=== PATIENT | female | born 1945 | race Caucasian/White ===

== ENCOUNTER 2019-12-09 13:44 | Outpatient (CLI) | payer MEDICARE, SELFPAY ==
--- NOTE | ~2019-12-09 | CT_ITS ---
EXAMINATION:CT lung screening DATE: 12/09/2019 14:50 INDICATION: Personal history of tobacco dependence. Current smoker with 30 pack year history. TECHNIQUE: Computed tomography (CT) of the chest was performed without intravenous contrast. Automate d exposure control and iterative reconstruction technique were employed. The dose-length product (DLP ) was 64.39 mGy-cm. COMPARISON: None. FINDINGS: There is mild atelectasis bilaterally. There is mild emphysema. No pleural effusion. There are macrocalcifications in the thyroid. There is an aberrant right subclavian artery. The heart size is normal. There are coronary artery calcifications. No pericardial effusion. There is thoracic kypho sis and severe spondylosis. IMPRESSION: 1. Lung-RADS category 1: Negative. Continue annual screening with noncontrast low-dose chest CT in 12 months. Reviewed, dictated and finalized at location A. IMPRESSION: 1. Lung-RADS category 1: Negative. Continue annual screening with noncontrast l ow-dose chest CT in 12 months.
--- NOTE | ~2019-12-09 | XR_ITS ---
XR lumbar spine 2-3V DATE: 12/09/2019 14:28 INDICATION: Acute low back pain, sciatica TECHNIQUE: AP, lateral , coned lateral lumbosacral views COMPARISON: None FINDINGS: There is diffuse osteopenia. There is mild levoscoliosis of the lumbar spine. There is degenerative spurring of the lower thoracic spine. No fracture or bone destruction. The lumbar pedicles are intact. Lumbar and lumbosacral interspaces are relatively well preserved. The sacroiliac joints are intact. There is extensive calcification of the abdominal aorta and iliac arteries. IMPRESSION: Osteopenia Degenerative change primarily at lower thoracic spine Reviewed, dictated and finalized at location A.
--- NOTE | ~2019-12-09 | XR_ITS ---
XR thoracic spine 3V DATE: 12/09/2019 14:28 INDICATION: Acute back pain. No injury. TECHNIQUE: AP, lateral, swimmer views COMPARISON: None FINDINGS: There is thoracic kyphosis. There is diffuse osteopenia. There is mild anterolisthesis at C2-3 and C3-4. There is prominent degenerative disc disease in the l ower cervical spine in particular. Thoracic spine fracture or bone destruction is noted. There is degenerative spurring. No paraspinal s oft tissue thickening is detected. IMPRESSION: Thoracic kyphosis Diffuse osteopenia Degenerative spurring Reviewed, dictated and finalized at location A.
== END 2019-12-09 13:45 | disposition home or self-care (01) ==
PROVIDERS: PCP Physician Assistant; Visit Provider Physician Assistant
DX: Z12.2 Encounter for screening for malignant neoplasm of respiratory organs (principal); Z87.891 Personal history of nicotine dependence; M54.5 Low back pain; M85.88 Other specified disorders of bone density and structure, other site
CPT/HCPCS: 72072; 72100; G0297

== ENCOUNTER 2020-04-24 12:59 | Outpatient (CLI) | payer MEDICARE, SELFPAY ==
[2020-04-24 15:07] LABS: Alanine Aminotransferase 10 U/L (4-35); Albumin Level 3.9 g/dL (3.5-5.1); Alkaline Phosphatase 103 U/L (38-126); Aspartate Amino Transferase 21 U/L (14-36); Bilirubin,Total 0.4 mg/dL (0.2-1.3)
[2020-04-24 15:18] LABS: T4 Thyroxine 9.35 ug/dL (5.53-11.0)
[2020-04-24 16:13] LABS: Valproic Acid 58.4 ug/mL (50-120)
== END 2020-04-24 13:00 | disposition home or self-care (01) ==
PROVIDERS: PCP Family Medicine; Visit Provider Family Medicine
DX: E03.9 Hypothyroidism, unspecified (principal); R94.5 Abnormal results of liver function studies; E78.5 Hyperlipidemia, unspecified; I10 Essential (primary) hypertension; E55.9 Vitamin D deficiency, unspecified
CPT/HCPCS: 36415; 80076; 80164; 84436; 84443

== ENCOUNTER 2021-01-09 19:38 | Emergency (ER) | payer MEDICARE, MEDICAID, SELFPAY ==
[2021-01-09 19:41] VITALS: BP 150/88; PULSE 89; RESP 18; TEMP 36.5; O2SAT 96
[2021-01-09 20:14] LABS: Basophils Absolute Auto 0.1 K/mm3 (0.0-0.1); Eosinophils Absolute Auto 0.2 K/mm3 (0-0.3); Eosinophils Percent Auto 2.6 % (0-4.4); Hematocrit 39.4 % (37.0-47.0); Hemoglobin 12.8 g/dL (12.0-15.0); Immature Granulocyte Absolute 0.05 K/mm3 (0.00-0.031); Immature Granulocyte Percent A 0.5 % (0-0.5); Lymphocytes Absolute Auto 2.54 K/mm3 (0.9-3.2); Lymphocytes Percent Auto 27.4 % (18.3-44.2); Mean Corpuscular HGB Conc 32.5 g/dl (32-36); Mean Corpuscular Hemoglobin 30.5 pg (26-34); Mean Corpuscular Volume 93.8 fl (80-100); Mean Platelet Volume 9.5 fl (7.4-10.4); Monocytes Percent Auto 10.6 % (2.6-8.5); Neutrophils Absolute Auto 5.4 K/mm3 (1.3-6.7); Neutrophils Percent Auto 57.9 % (45.5-73.1); Platelet Count Result 245 k/mm3 (150-375); Red Cell Distribution Width 13.8 % (11.5-14.5); White Blood Count 9.3 K/mm3 (4.5-10.0)
[2021-01-09 20:23] LABS: Anion Gap 8 mmol/L (8-16); Blood Urea Nitrogen 21 mg/dL (7-17); Calcium 9.4 mg/dL (8.4-10.2); Carbon Dioxide 26 mmol/L (22-30); Chloride 92 mmol/L (98-107); Estimated Glomerular Filt Rate 29; Glucose 93 mg/dL (65-110); Potassium 4.5 mmol/L (3.4-5.0); Sodium 126 mmol/L (137-145)
[2021-01-09 20:57] LABS: Erythrocyte Sedimentation Rate 9 mm/hr (0-20)
--- NOTE | 2021-01-09 23:28 | ED.LOWEXIN ---
HPI - Extremity Injury (Lower) General Chief Complaint: Extremity Injury, Lower Stated Complaint: L leg pain, [place]? Time Seen by Provider: 01/09/21 23:16 Source: patient History of Present Illness HPI Narrative: Patient presents with lower extremity edema and pain. Patient reports symptoms been present for approximately 1 month and getting progressively worse so she came in for evaluation. Pain is achy, constant, no radiation worse with attempting to use her left lower extremity. She denies prior history of DVTs, PEs or other thrombotic events. She denies recent surgery. She denies any fevers, nausea, vomiting. She denies any chest pain or shortness of breath. Related Data Allergies Allergy/AdvReac Type Severity Reaction Status Date / Time Sulfa (Sulfonamide Allergy Mild Verified 04/27/10 11:52 Antibiotics) Review of Systems Review of Systems: CONSTITUTIONAL: Denies fever, chills, or sweats. EYES: Denies visual changes, redness, or discharge. ENT: Denies rhinorrhea, congestion, sore throat, or otalgia. CARDIOVASCULAR: Denies chest pain, palpitations, or edema. RESPIRATORY: Denies cough or dyspnea. GASTROINTESTINAL: Denies abdominal pain, nausea, vomiting, or diarrhea. GENITOURINARY: Denies dysuria or hematuria. SKIN: Denies rash or itching. MUSCULOSKELETAL: Denies back pain, joint pain, or myalgia. NEUROLOGIC: Denies headache, numbness, dizziness, or weakness. PSYCHIATRIC: Denies anxiety or depression. PMFSH Social History Social History Gender identity (if verbalized by the patient): Female Exam Narrative: GENERAL: Well-appearing, well-nourished, and in no acute distress. HEAD: Normocephalic, atraumatic. EYES: PERRLA and EOMI. ENT: Nares clear, no rhinorrhea or epistaxis. Mucous membranes moist. NECK: Supple. No masses. No JVD EXTREMITIES: Mild erythema to the left lower extremity with 1+ pitting edema up to the knee. There is tenderness with palpation on the left lower extremity and with squeezing of the calf. Minimal warmth noted to the left lower extremity. SKIN: Warm, dry, no rash. NEURO: No focal deficits. Alert and oriented x3. PSYCH: Normal mood and affect. Course Vital Signs Vital signs: Vital Signs Temperature 36.5 C 01/09/21 19:41 Pulse Rate 89 01/09/21 19:41 Respiratory Rate 18 01/09/21 19:41 Blood Pressure 150/88 H 01/09/21 19:41 Pulse Oximetry 96 01/09/21 19:41 Temperature 36.5 C 01/09/21 19:41 Pulse Rate 81 01/10/21 00:18 Respiratory Rate 18 01/10/21 00:18 Blood Pressure 144/87 H 01/10/21 00:18 Pulse Oximetry 96 01/10/21 00:18 MDM - Extremity Injury (Lower) MDM Narrative Medical decision making narrative: H&P as above, vss, pt looks clinically well, exam unilateral lower extremity edema, labs with mild elevation in creatinine consistent with known chronic kidney disease img scheduled for tomorrow morning, additional labs/img considered, symptomatic relief available as needed, patient was empirically treated with Lovenox. on reevaluation pt continues to looks clinically well. Primary concern is for DVT symptoms may also represent infection however there is limited warmth to the area, dns compartment syndrome, major neurovascular compromise. Patient was scheduled for DVT ultrasound tomorrow morning at 730. Plan to tx/monitor as op w/ pcm f/u findings/plan discussed with pt, pt agree/comfortable with plan, return precautions given Lab Data Result diagrams: 01/09/21 19:50 01/09/21 19:50 Labs: Lab Results 01/09/21 01/09/21 01/09/21 Range/Units 19:50 19:50 19:50 WBC 9.3 (4.5-10.0) K/mm3 RBC 4.20 (4.2-5.4) M/mm3 Hgb 12.8 (12.0-15.0) g/dL Hct 39.4 (37.0-47.0) % MCV 93.8 (80-100) fl MCH 30.5 (26-34) pg MCHC 32.5 (32-36) g/dl RDW 13.8 (11.5-14.5) % Plt Count 245 (150-375) k/mm3 MPV 9.5 (7.4-10.4) fl Immature
[2021-01-09] MEDS: ENOXAPARIN 80 MG/0.8 ML SYRINGE SUB-Q (23:36)
[2021-01-09 23:37] VITALS: BP 146/93; PULSE 84; RESP 18; O2SAT 97
[2021-01-10 00:18] VITALS: BP 144/87; PULSE 81; RESP 18; O2SAT 96
== END 2021-01-10 00:20 | disposition home or self-care (01) ==
LOC: ANHED 01-10 00:10
PROVIDERS: Family Medicine; Emergency Provider Emergency Medicine; PCP Family Medicine
DX: R60.0 Localized edema (principal)
CPT/HCPCS: 36415; 80048; 85025; 85652; 96372; 99283; J1650

== ENCOUNTER 2021-01-10 11:10 | Outpatient (CLI) | payer MEDICARE, MEDICAID, SELFPAY ==
--- NOTE | ~2021-01-10 | US_ITS ---
EXAMINATION:US venous doppler LE LT INDICATION:Left lower extremity pain TECHNIQUE: Multiple grayscale, color flow and Doppler images of the left lower extremity deep venous systems were obtained and reviewed. COMPARISON:No prior studies for comparison. FINDINGS: The common femoral, superficial femoral and popliteal veins demonstrate normal respiratory variation, augmentation and compressibility. Color flow is also seen within the posterior tibial, pe roneal, greater saphenous and profunda veins. IMPRESSION: 1: No lower extremity deep venous thrombosis. Reviewed, dictated and finalized at location A.
== END 2021-01-10 11:11 | disposition home or self-care (01) ==
LOC: ANHIMG 11:20
PROVIDERS: PCP Family Medicine; Visit Provider Family Medicine
DX: M79.662 Pain in left lower leg (principal)
CPT/HCPCS: 93971

== ENCOUNTER 2021-12-09 14:25 | Outpatient (CLI) | payer OTHER, SELFPAY ==
--- NOTE | ~2021-12-09 | US_ITS ---
EXAMINATION: US renal BI DATE: 12/09/2021 15:23 INDICATION: CKD TECHNIQUE: Multiple grayscale and Doppler ultrasound images of the kidneys were obtained. COMPARISON: None available FINDINGS: The right kidney measures 10.4 x 4.3 x 6.5 cm. The left kidney measures 9.3 x 5.7 x 4.8 cm. The kidne ys demonstrate increased parenchymal echogenicity. Mild right pelviectasis. No sonographic evidence o f nephrolithiasis. Multiple simple right renal cysts largest measuring 2.8 cm. The bladder is trabecu lated. Bilateral ureteral jets. Prevoid volume 278 mL. Post void volume 36.3 mm. IMPRESSION: 1. Sonographic findings of medical renal disease. 2. Simple right renal cysts and mild right pelviectasis. 3. 36.3 mm postvoid residual volume. Reviewed, dictated and finalized at location K.
== END 2021-12-09 14:26 | disposition home or self-care (01) ==
PROVIDERS: PCP Family Medicine; Visit Provider Internal Medicine Cardiovascular Disease
DX: N18.9 Chronic kidney disease, unspecified (principal); N28.1 Cyst of kidney, acquired
CPT/HCPCS: 76775

== ENCOUNTER 2022-02-15 02:36 | Inpatient (IN) | payer OTHER, SELFPAY ==
[2022-02-15] VITALS (37 sets, daily range): BP systolic 125–152; BP diastolic 69–89; PULSE 80–99; RESP 12–22; TEMP 36.1–37; O2SAT 94–98; BMI 28.3
--- NOTE | ~2022-02-15 | US_ITS ---
US right upper quadrant DATE: 02/16/2022 15:49 INDICATION: Abdominal pain TECHNIQUE: Real-time imaging of liver, pancreas, gallbladder COMPARISON: 02/11/2022 CT abdomen pelvis FINDINGS: No hepatic or pancreatic space-occupying mass lesion is evident. Normal hepatopedal portal venous flow direction. No gallstones or gallbladder wall thickening. Negative sonographic Castillo's sign. Common bile duct me asures approximately 6 mm, at upper limits of normal. IMPRESSION: No significant abnormality Reviewed, dictated and finalized at Location A. Reviewed, dictated and finalized at location A. IMPRESSION: No significant abnormality
--- NOTE | ~2022-02-15 | CT_ITS ---
EXAMINATION: CT brain wo con DATE: 02/15/2022 04:12 INDICATION: Status post fall. Weakness. TECHNIQUE: Computed tomography (CT) of the head was performed without intravenous contrast. The dose- length product was 983.67 mGy-cm. Automated exposure control and iterative reconstruction technique w ere employed. COMPARISON: CT dated 11/29/2010 FINDINGS: Generalized atrophy. There are scattered mild periventricular and subcortical white matter changes, most likely related to small vessel ischemic disease (microangiopathy). No ventriculomegaly or midline shift. There are scattered mild periventricular and subcortical white matter changes, most likely related to small vessel ischemic disease (microangiopathy). There is intracranial atheroscler osis. No depressed skull fractures. IMPRESSION: 1. No acute intracranial abnormality. 2: Chronic age-related findings. Reviewed, dictated and finalized at location A.
--- NOTE | ~2022-02-15 | CT_ITS ---
EXAMINATION: CT abdomen pelvis wo con DATE: 02/15/2022 04:13 INDICATION: Low abdominal pain TECHNIQUE: Computed tomography (CT) of the abdomen and pelvis was performed without intravenous contr ast. The dose-length product was 447.07 mGy-cm. . Automated exposure control and iterative reconstruc tion technique were employed. COMPARISON: None. FINDINGS: There is dependent atelectasis. Heart size normal. No significant pleural or pericardial ef fusion. There are pancreatic calcifications, consistent with chronic pancreatitis. There are small hy perdense cysts of the right kidney. There are bilateral renal cortical calcifications. No obstructing stone. The liver, spleen, adrenal glands are unremarkable for noncontrast CT. Gallbladder is present. Modera te colonic fecal loading. No obstruction. There is mild thickening of the gastric wall which may be d ue to a gastritis or underdistention. There is atherosclerosis of the aorta without aneurysm. No lymp hadenopathy. No suspicious pelvic masses or fluid collections. There is moderate lower thoracic and l umbar spondylosis with scoliosis. IMPRESSION: 1. Gastric wall thickening which may be due to underdistention or gastritis. Reviewed, dictated and finalized at location A.
--- NOTE | ~2022-02-15 | XR_ITS ---
EXAMINATION: XR chest 1V portable 02/15/2022 04:26 INDICATION: Generalized weakness PROCEDURE: AP portable chest COMPARISON: Comparison to multiple prior studies sequentially, with oldest reviewed study dated 12/2007. FINDINGS: The lungs are clear. There is atherosclerosis of the aorta. The cardiomediastinal silhouett e is within normal limits. There are no pleural effusions. There is no pneumothorax suspected. IMPRESSION: 1: NO ACUTE CARDIOPULMONARY DISEASE. Reviewed, dictated and finalized at location A.
--- NOTE | ~2022-02-15 | XR_ITS ---
XR ankle LT min 3V 02/15/2022 10:59 INDICATION: Left ankle pain and swelling PROCEDURE: 4 views left ankle COMPARISON: No prior studies for comparison. FINDINGS: Fracture, dislocation or subluxation is not identified. Osteopenia. Small degenerative calc aneal enthesophytes. The soft tissues appear within normal limits. No foreign bodies are identified. IMPRESSION: 1: NO ACUTE BONE OR JOINT ABNORMALITY IDENTIFIED. Reviewed, dictated and finalized at location A.
--- NOTE | ~2022-02-15 | CT_ITS ---
EXAMINATION: CT cervical spine wo con DATE: 02/15/2022 04:12 INDICATION: Generalized weakness TECHNIQUE: Computed tomography (CT) of the cervical spine was performed without intravenous contrast. The dose-length product was 228 mGy-cm. Automated exposure control and iterative reconstruction tech nique were employed. COMPARISON: CT dated 11/29/2010 FINDINGS: Lung apices are normal. There is degenerative disc disease at all cervical spine levels. Th ere is degenerative anterolisthesis at C7-T1. There is moderate multilevel uncinate and facet hypertr ophy. No acute fracture or traumatic malalignment. Craniovertebral junction is normal. IMPRESSION: 1. No acute fracture. 2: Severe cervical spondylosis. Reviewed, dictated and finalized at location A.
--- NOTE | ~2022-02-15 | XR_ITS ---
XR knee LT 3V 02/15/2022 04:27 INDICATION: Right knee pain and bruising after fall PROCEDURE: 3 views left knee COMPARISON: No prior studies for comparison. FINDINGS: Fracture, dislocation or subluxation is not identified. The soft tissues appear within norm al limits. No foreign bodies are identified. IMPRESSION: 1: NO ACUTE BONE OR JOINT ABNORMALITY IDENTIFIED. Reviewed, dictated and finalized at location A.
--- NOTE | ~2022-02-15 | XR_ITS ---
XR knee RT 3V 02/15/2022 04:27 INDICATION: Right knee pain after fall PROCEDURE: 3 views right knee COMPARISON: No prior studies for comparison. FINDINGS: Fracture, dislocation or subluxation is not identified. No significant joint effusion. Ther e are vascular calcifications. The soft tissues appear within normal limits. No foreign bodies are i dentified. IMPRESSION: 1: NO ACUTE BONE OR JOINT ABNORMALITY IDENTIFIED. Reviewed, dictated and finalized at location A.
--- NOTE | 2022-02-15 02:44 | PC.NURSE ---
Pt saturated in urine. RN and Virgie RN changed pt and placed on new linens.
--- NOTE | 2022-02-15 02:47 | ECG_ITS ---
Measurements Intervals [place] Rate: 85 P: 70 CO: 132 QRS: 16 QRSD: 94 T: 53 QT: 391 QTc: 466 Interpretive Statements SINUS RHYTHM EARLY PRECORDIAL R/S TRANSITION BORDERLINE ST ABNORMALITY- ANTEROLAT/INF LEADS BORDERLINE ECG BASELINE ARTIFACT- I, II, III, AVR, AVF NO PREVIOUS ECG AVAILABLE FOR COMPARISON Electronically Signed On 02-15-2022 8:51:07 CDT by Denton Ruelas D.O.
--- NOTE | 2022-02-15 02:52 | ED.WEAKNESS ---
HPI - Weakness General Chief complaint: Weakness Stated complaint: FALL/ON FLOOR 24 HRS Time Seen by Provider: 02/15/22 02:47 History of Present Illness HPI Narrative: 76-year-old female who fell on the floor yesterday while she was reaching for something, and then was unable to get back up. She states that she was crawling on the floor for a day trying to find her phone, and did void on herself. Related Data Allergies Allergy/AdvReac Type Severity Reaction Status Date / Time Sulfa (Sulfonamide Allergy Mild Unknown Verified 02/15/22 02:47 Antibiotics) Review of Systems Review of Systems: CONST: No fever. HEENT: Bruise to head C/V: No chest pain RESP: No cough GI: Reports suprapubic abdominal pain :Mild dysuria. M/S: Knee pain SKIN: Bruising to knees NEURO: [No focal numbness or weakness] PSYCH: [No depression] PMFSH Past Medical History Medical History CKD (chronic kidney disease) Social History Social History Gender identity (if verbalized by the patient): Female Exam Narrative: EXAMINATION OF ORGAN SYSTEMS/BODY AREAS: Constitutional: Vital signs per nursing GENERAL:[No acute distress, non-toxic appearing.] HEAD: Contusion to forehead EYES: EOMI, conjunctiva normal ENT: Hearing grossly intact LUNGS: Nonlabored breathing. HEART: [Regular rate and rhythm] ABD: [Soft], some tenderness palpation lower abdomen EXT: Normal range of motion SKIN: Bruising bilateral knees NEURO: [Alert and oriented x 3. No gross focal sensory or strength deficits.] PSYCH: Normal affect Course Vital Signs Vital signs: Vital Signs Temperature 97 F L 02/15/22 02:42 Pulse Rate 90 02/15/22 02:42 Respiratory Rate 20 02/15/22 02:42 Blood Pressure 149/89 H 02/15/22 02:42 Pulse Oximetry 97 02/15/22 02:42 Oxygen Delivery Room Air 02/15/22 02:42 Temperature 97 F L 02/15/22 02:42 Pulse Rate 92 02/15/22 02:48 Respiratory Rate 20 02/15/22 02:42 Blood Pressure 149/89 H 02/15/22 02:42 Pulse Oximetry 97 02/15/22 02:42 Oxygen Delivery Room Air 02/15/22 02:42 MDM - Weakness MDM Narrative Medical decision making narrative: 76-year-old female presents here after fall, then was too weak to get up. Vital signs stable here, on exam she does have a contusion to her forehead, and bruising to her lower legs, she has some mild tenderness to her abdomen. I suspect possible infection including pneumonia or UTI, rhabdo, vs possible intraabdominal or cardiac etiology or intracranial abnormality. EKG is nonischemic, UA not c/w UTI. CT head on my eval doesn't show any obvious acute intracranial abnormality. Remainder of imaging pending official read but her troponin was elevated, she continues to deny chest pain; aspirin provided and case discussed with hospitalist for admission. Lab Data Result diagrams: 02/15/22 03:07 02/15/22 03:07 Labs: Lab Results 02/15/22 02/15/22 02/15/22 Range/Units 03:07 03:07 03:07 WBC 15.7 H (4.5-10.0) K/mm3 RBC 4.41 (4.2-5.4) M/mm3 Hgb 13.1 (12.0-15.0) g/dL Hct 40.2 (37.0-47.0) % MCV 91.2 (80-100) fl MCH 29.7 (26-34) pg MCHC 32.6 (32-36) g/dl RDW 13.6 (11.5-14.5) % Plt Count 283 (150-375) k/mm3 MPV 9.2 (7.4-10.4) fl Immature Gran % (Auto) 0.5 (0-0.5) % Neut % (Auto) 85.0 H (45.5-73.1) % Lymph % (Auto) 7.1 L (18.3-44.2) % [place] % (Auto) 7.0 (2.6-8.5) % Eos % (Auto) 0.1 (0-4.4) % Baso % (Auto) 0.3 (0.2-1.2) % Lymph # (Auto) 1.12 (0.9-3.2) K/mm3 [place] # (Auto) 1.1 H (0.1-0.6) K/mm3 Eos # (Auto) 0.0 (0-0.3) K/mm3 Baso # (Auto) 0.1 (0.0-0.1) K/mm3 Abs Immat Gran (auto) 0.08 H (0.00-0.031) K/mm3 Absolute Neuts (auto) 13.3 H (1.3-6.7) K/mm3 Absolute Nucleated RBC 0.0 (0.0-0.012) K/mm3 Nucleated RBC % 0.0 (0.0-0.2) % [place]
[2022-02-15 03:18] LABS: Basophils Absolute Auto 0.1 K/mm3 (0.0-0.1); Basophils Percent Auto 0.3 % (0.2-1.2); Eosinophils Percent Auto 0.1 % (0-4.4); Hematocrit 40.2 % (37.0-47.0); Hemoglobin 13.1 g/dL (12.0-15.0); Immature Granulocyte Absolute 0.08 K/mm3 (0.00-0.031); Immature Granulocyte Percent A 0.5 % (0-0.5); Lymphocytes Absolute Auto 1.12 K/mm3 (0.9-3.2); Lymphocytes Percent Auto 7.1 % (18.3-44.2); Mean Corpuscular HGB Conc 32.6 g/dl (32-36); Mean Corpuscular Hemoglobin 29.7 pg (26-34); Mean Corpuscular Volume 91.2 fl (80-100); Mean Platelet Volume 9.2 fl (7.4-10.4); Monocytes Absolute Auto 1.1 K/mm3 (0.1-0.6); Neutrophils Absolute Auto 13.3 K/mm3 (1.3-6.7); Platelet Count Result 283 k/mm3 (150-375); Red Blood Count 4.41 M/mm3 (4.2-5.4); Red Cell Distribution Width 13.6 % (11.5-14.5); White Blood Count 15.7 K/mm3 (4.5-10.0)
[2022-02-15 03:20] LABS: Appearance Urine Clear (Clear); Bilirubin Urine Negative (Negative); Blood Urine 1+ (Negative); Color Urine Yellow (Yellow); Glucose Urine UA Negative (Negative); Ketones Urine Trace mg/dL (Negative); Leukocyte Esterase Ur Negative LEU/UL (Negative); Nitrate Urine Negative (Negative); Protein Urine 1+ mg/dL (Negative); Urobilinogen Urine 0.2 mg/dL (<2.0)
[2022-02-15 03:29] LABS: Squamous Epithelial Cell Urine Rare /hpf (Few); WBC Urine 0-3 /hpf
[2022-02-15 03:34] LABS: Alanine Aminotransferase 20 U/L (6-35); Albumin Level 4.2 g/dL (3.5-5.1); Alkaline Phosphatase 80 U/L (38-126); Anion Gap 15 mmol/L (8-16); Aspartate Amino Transferase 42 U/L (14-36); Bilirubin,Total 0.8 mg/dL (0.2-1.3); Blood Urea Nitrogen 33 mg/dL (7-17); Carbon Dioxide 25 mmol/L (22-30); Chloride 97 mmol/L (98-107); Creatine Kinase 875 U/L (30-135); Estimated CRCL calculation 20 ml/min; Estimated Glomerular Filt Rate 24; Glucose 96 mg/dL (65-110); Potassium 4.1 mmol/L (3.4-5.0); Sodium 137 mmol/L (137-145)
[2022-02-15 03:45] LABS: Add Urine Microscopic? YES
[2022-02-15 04:03] LABS: Troponin I 0.103 ng/mL (0.000-0.034)
[2022-02-15] MEDS: LACTATED RINGERS 1,000 ML 999 ML IV CONT (04:25)
[2022-02-15] MEDS: ASPIRIN 81 MG CHEWABLE TABLET 324 MG PO (04:26)
[2022-02-15] MEDS: TETANUS,DIPHTHERIA,AC PERTUSSIS ADULT (0.5 ML) BOOSTRIX IM (04:26)
[2022-02-15 06:03] LABS: SARS-CoV-2 RNA PCR Negative
--- NOTE | 2022-02-15 06:37 | ADMGEN ---
This patient, Kayla Márquez, was admitted to IMU Room 206-01 at 0636. Patient/family oriented to hospital policies and general routines including ID bracelet, bed and alarms, visiting hours, pain management, procedures, bathroom and other care routines, personal items, smoking policy, room service/diet, and visiting hours. Information on how to activate the Rapid Response Team has been discussed. Patient/Family are encouraged to report perceived risks to care and to ask questions if they do not understand what they are told or what they should do.
[2022-02-15 06:55] LABS: Troponin I 0.113 ng/mL (0.000-0.034)
--- NOTE | 2022-02-15 08:32 | PM.IMHP ---
H&P: HPI History of Present Illness Date/Time: 02/15/22 08:32 Chief Complaint: Fall Narrative: 76F with a past medical history of hypothyroidism, hypertension, seizure disorder, alcoholism in remission, chronic kidney disease stage IV, hypertension and hyperlipidemia who presents to the emergency department after a fall. Patient says she was going from the kitchen to the living room when she twisted her ankle and fell. She had been feeling week for 2-3 days prior to the fall and says she was took weak to get up off the floor. She crawled and knocked her phone off the table and called 911. She denies fever, chills but says she had been having weakness and burning with urination for a few days. Reports she has not been eating and drinking well the last few days either. She also says she felt confused and disoriented before falling. Denies palpitations, lightheadedness, chest pain. She does get ankle edema at times. Denies cough, sore throat, rhinorrhea, nausea, vomiting, diarrhea. Has constipation. Denies easy bruising bleeding but she reports she does have bruising from a prior fall on her chest. Denies myalgias. Denies LOC and says she remembers falling. Lives at home alone after having been in an senior living for 10 months. In the ED, CT A/P pending. CK 875. Troponin 0.103->0.113->0.095. Leukocytosis 15. CT head no intracranial abnormality. CT cervical spine no fracture. Given 1L LR and ASA 324 mg. Review of Systems Constitutional: Constitutional: Reports weakness ENT: Denies nasal congestion Cardiovascular: Cardiovascular: Denies chest pain, Reports leg edema, Denies lightheadedness and Denies palpitations Respiratory: Respiratory: Denies dyspnea Gastrointestinal: Gastrointestinal: Reports abdominal pain, Reports constipation, Denies diarrhea, Denies nausea and Denies vomiting Genitourinary: Genitourinary: Reports dysuria Integumentary/Breasts: Skin/Breast: Denies unusual bruising Neurologic: Reports confusion [facility] Past Medical History Medical History (Updated 02/15/22 @ 17:16 by Sheila Rader MD) CKD (chronic kidney disease) Stage 4 COPD (chronic obstructive pulmonary disease) GERD (gastroesophageal reflux disease) History of bipolar disorder History of seizures Hyperlipidemia Hypertension Hypothyroid Family History Family History Daughter AIDS Social History Social History (Updated 02/15/22 @ 17:09 by Sheila Rader MD) Social History: Patient states she is , had 3 children but 1, daughter, from AIDS. Smoking status: Current every day smoker Alcohol intake: former Alcohol use details: Says she was an alcoholic for as long as she can remember until she was in the senior living for 10 months recently. Substance use: former Other substance usage details: She says she tried many drugs when she was younger Living arrangements: alone Occupation/Education: retired Additional occupation/education comments: Has an undergraduate degree in psychology and philosophy Gender identity (if verbalized by the patient): Female Spiritual care concerns: No Comments No past surgical history. Meds Home Medications and Allergies Home Medications Medication Instructions Recorded Confirmed Type acetaminophen 300 mg-codeine 30 mg 1 tablet PO TID pain 02/15/22 02/15/22 History tablet albuterol sulfate 90 mcg/actuation 1 puff inhalation PRN PRN 02/15/22 02/15/22 History aerosol inhaler Shortness Of Breath Or Wheezing calcitriol 0.25 mcg capsule 0.25 mcg PO DAILY 02/15/22 02/15/22 History divalproex 500 mg tablet,delayed 1,000 mg PO HS 02/15/22 02/15/22 History release ergocalciferol (vitamin D2) 1,250 1,250 mcg PO WEEKLY 02/15/22 02/15/22 History mcg (50,000 unit) capsule furosemide 20 mg tablet 20 mg PO DAILY 02/15/22 02/15/22 History hydroxyzine HCl 25 mg tablet 25 mg PO TID PRN
[2022-02-15] MEDS: LEVOTHYROXINE SODIUM 50 MCG TABLET PO (09:47)
[2022-02-15] MEDS: calcitrioL 0.25 MCG CAPSULE PO (09:47)
[2022-02-15] MEDS: PANTOPRAZOLE 40 MG TABLET PO (09:47)
[2022-02-15] MEDS: SIMVASTATIN 20 MG TABLET PO (09:47)
[2022-02-15] MEDS: METOPROLOL SUCCINATE EXT REL 50 MG TABCR PO (09:47)
[2022-02-15 10:03] LABS: Troponin I 0.095 ng/mL (0.000-0.034)
[2022-02-15] MEDS: SODIUM CHLORIDE 0.9% IV 1,000 ML 100 ML IV CONT ×2 (11:45→20:50)
--- NOTE | 2022-02-15 12:49 | PM.CNCAR ---
Assessment and Plan Assessment and plan (1) Elevated troponin: Code(s): R77.8 - Other specified abnormalities of plasma proteins Status: Acute Assessment and Plan: Patient admitted after a mechanical fall, down for 24 hours, struggled to get up. Has an elevated troponin but flat curve. Several risk factors for CAD but no history of heart problems Denies any chest discomfort EKG does not show any significant changes Will check an echo Doubt ACS; doubt that we need to evaluate this further Already takes a statin as well as a beta-nury and an ARB. (2) Fall: Code(s): W19.XXXA - Unspecified fall, initial encounter Status: Acute Assessment and Plan: One recent fall, could not get up Patient told EMS she has been having trouble functioning and has had progressive weakness in the last month or so. No other recent fall Getting IV fluids for dehydration and being evaluated for possible UTI. (3) Hypertension: Code(s): I10 - Essential (primary) hypertension Status: Acute Assessment and Plan: Blood pressure seems reasonably well controlled. (4) CKD (chronic kidney disease): Code(s): N18.9 - Chronic kidney disease, unspecified Status: Acute Assessment and Plan: CKD, was stage III in 2020, stage IV on this admission History of Present Illness History of Present Illness Consult date/time: 02/15/22 12:49 Reason For Visit: Elevated Troponin, Fall, General Weakness Narrative: Kayla Márquez is a 86-year-old female whom I was asked to see at the request of Dr. Guillermina Rader for my advice and opinion regarding her elevated troponins, in consultation. She has a history of hypertension, hyperlipidemia and chronic kidney disease, and smoking but no known heart disease. The patient has been feeling weak the last few days/weeks and apparently has not been functioning well. At home she fell (no dizziness or syncope) and could not get up off the floor. She states she struggled to get up, but apparently was down for 24 hours before she was able to reach the phone and call 911. On their arrival her pulse is 134 and blood pressure was 174/86. She was brought to the emergency room by EMS. There was no chest pain, but for some unclear reason troponins were drawn and they were 0.103, 0.113 and 0.095. Records fr Waleska DUONG 12/05/2019 reviewed; pt has a h/o COPD, GERD, sx and bipolar disorder. She currently sees Dr. Lopez as her primary care doctor. Review of Systems Constitutional: Constitutional: Reports fatigue, Denies fever(s), Reports lethargy and Reports weakness Cardiovascular: Cardiovascular: Denies chest pain, Reports pedal edema (Occasional lower extremity edema), Denies lightheadedness and Denies dyspnea Respiratory: Respiratory: Denies chest congestion and Denies dyspnea Comments: Has COPD and uses an inhaler infrequently. Not much SOB. Gastrointestinal: Gastrointestinal: Denies abdominal pain and Denies hematochezia Comments: Anorexia, not eating well recently. Genitourinary: Genitourinary: Denies hematuria Musculoskeletal: Musculoskeletal: Reports no additional musculoskeletal complaints Integumentary/Breasts: Skin/Breast: Reports system reviewed and no additional complaints, except as docu Neurologic: Reports system reviewed and no additional complaints, except as documented, Denies behavioral changes and Denies confusion Psychiatric: Psychiatric: Denies behavioral changes and Denies confusion Comments: Admits to some memory problems. [facility] Past Medical History Medical History (Updated 02/15/22 @ 15:39 by Summer Romero MD) CKD (chronic kidney disease) Stage 4 COPD (chronic obstructive pulmonary disease) GERD (gastroesophageal reflux disease) History of bipolar disorder History of seizures Hyperlipidemia Hypertension Hypothyroid Family History Family History (Updated 02/15/22 @ 15:33 by Summer Monique
--- NOTE | 2022-02-15 14:28 | ECG_ITS ---
Measurements Intervals [place] Rate: 82 P: 55 OR: 134 QRS: -3 QRSD: 97 T: 20 QT: 408 QTc: 478 Interpretive Statements SINUS RHYTHM EARLY PRECORDIAL R/S TRANSITION CONSIDER INFERIOR INFARCT, AGE INDETERMINATE ABNORMAL ECG COMPARED TO ECG 02/15/2022 03:11:24 NO SIGNIFICANT CHANGES Electronically Signed On 02-15-2022 18:25:17 CDT by Denton Ruelas D.O.
[2022-02-15 18:27] LABS: Valproic Acid 15.5 ug/mL (50-120)
[2022-02-15 18:39] LABS: Free T4 Free Thyroxine 1.75 ng/mL (0.78-2.19)
[2022-02-15] MEDS: DIVALPROEX SODIUM ER 500 MG TAB.24H 1000 MG PO (20:50)
[2022-02-15] MEDS: HEPARIN SODIUM 5,000 UNITS/ML VIAL 5000 UNITS SUB-Q (20:51)
[2022-02-15] MEDS: OLANZapine 5 MG TABLET 10 MG PO (20:51)
[2022-02-15] MEDS: hydrOXYzine HCL 25 MG TABLET PO (23:32)
[2022-02-15] MEDS: ACETAMINOPHEN 325 MG TABLET 650 MG PO (23:51)
[2022-02-16] VITALS (16 sets, daily range): BP systolic 117–154; BP diastolic 69–93; PULSE 68–103; RESP 16–28; TEMP 36.6–37.1; O2SAT 92–98
[2022-02-16 06:58] LABS: Basophils Absolute Auto 0.1 K/mm3 (0.0-0.1); Basophils Percent Auto 0.9 % (0.2-1.2); Eosinophils Absolute Auto 0.1 K/mm3 (0-0.3); Eosinophils Percent Auto 1.4 % (0-4.4); Hematocrit 36.2 % (37.0-47.0); Hemoglobin 11.8 g/dL (12.0-15.0); Immature Granulocyte Absolute 0.06 K/mm3 (0.00-0.031); Immature Granulocyte Percent A 0.6 % (0-0.5); Lymphocytes Absolute Auto 1.93 K/mm3 (0.9-3.2); Lymphocytes Percent Auto 18.9 % (18.3-44.2); Mean Corpuscular HGB Conc 32.6 g/dl (32-36); Mean Corpuscular Hemoglobin 29.9 pg (26-34); Mean Corpuscular Volume 91.9 fl (80-100); Mean Platelet Volume 9.4 fl (7.4-10.4); Monocytes Percent Auto 9.8 % (2.6-8.5); Neutrophils Percent Auto 68.4 % (45.5-73.1); Platelet Count Result 263 k/mm3 (150-375); Red Blood Count 3.94 M/mm3 (4.2-5.4); Red Cell Distribution Width 13.9 % (11.5-14.5); White Blood Count 10.2 K/mm3 (4.5-10.0)
[2022-02-16 07:18] LABS: Anion Gap 8 mmol/L (8-16); Blood Urea Nitrogen 30 mg/dL (7-17); Calcium 9.1 mg/dL (8.4-10.2); Carbon Dioxide 27 mmol/L (22-30); Chloride 106 mmol/L (98-107); Estimated CRCL calculation 22 ml/min; Estimated Glomerular Filt Rate 28; Glucose 106 mg/dL (65-110); Potassium 3.2 mmol/L (3.4-5.0); Sodium 141 mmol/L (137-145)
[2022-02-16] MEDS: LEVOTHYROXINE SODIUM 50 MCG TABLET PO (07:35)
[2022-02-16] MEDS: METOPROLOL SUCCINATE EXT REL 50 MG TABCR PO (08:24)
[2022-02-16] MEDS: PANTOPRAZOLE 40 MG TABLET PO (08:24)
[2022-02-16] MEDS: SIMVASTATIN 20 MG TABLET PO (08:24)
[2022-02-16] MEDS: calcitrioL 0.25 MCG CAPSULE PO (08:24)
[2022-02-16] MEDS: HEPARIN SODIUM 5,000 UNITS/ML VIAL 5000 UNITS SUB-Q ×2 (08:24→20:39)
[2022-02-16] MEDS: ACETAMINOPHEN 325 MG TABLET 650 MG PO (08:26)
--- NOTE | 2022-02-16 08:40 | PM.IMPN ---
Progress Note: A&P Assessment and Plan (1) Fall: Code(s): W19.XXXA - Unspecified fall, initial encounter Status: Acute Assessment and Plan: Seizure medication level low. May have contributed to fall. Have restarted medication and will recheck level. -PT/OT (2) Elevated troponin: Code(s): R77.8 - Other specified abnormalities of plasma proteins Status: Acute Assessment and Plan: Appreciates Cardiology Recommendations. Will continue statin, bb and ARB. (3) Hypertension: Code(s): I10 - Essential (primary) hypertension Status: Acute Assessment and Plan: Continue home metoprolol and losartan. Will monitor. (4) CKD (chronic kidney disease): Code(s): N18.9 - Chronic kidney disease, unspecified Status: Acute Assessment and Plan: Patient reports stage 4 and that she follows with a [facility]. Based on GFR patient is at baseline. Will monitor. -Avoid nephrotoxic agents -Renally dose medications (5) Elevated CK: Code(s): R74.8 - Abnormal levels of other serum enzymes Status: Acute Assessment and Plan: CK pending this morning. Will add IVF if still elevated. (6) Left ankle pain: Code(s): M25.572 - Pain in left ankle and joints of left foot Status: Acute Assessment and Plan: XR left ankle with no fracture. Continue PT/OT. (7) Hypothyroid: Code(s): E03.9 - Hypothyroidism, unspecified Status: Acute Assessment and Plan: Euthyroid. Continue home medication for now. (8) History of seizures: Code(s): Z87.898 - Personal history of other specified conditions Status: Acute Assessment and Plan: Unclear if she had a seizure and fell although she does say she remember the fall. Plan Full Code Son Last is contact Heparin prophylaxis Subjective Date/time seen: 02/16/22 08:40 The patient stated she was unsure of whether or not she is taking her seizure medication and then closed her eyes. I touched her leg and called her name. After touching her leg the patient reported her leg was broken. After being informed it was not broken, the patient refused to answer questions. She stated that I am not a doctor and requested to see my ID badge. When looking at my ID badge she stated my badge said Sheila Rader [place]. When corrected that the MD stood for doctor of medicine, she became angry and refused to talk. Nursing and case management also report unusual behavior. Said patient reported her foot would not move because it was bent in an unnatural position and could not move back. Review of Systems Review of Systems: Patient refused. ROS unobtainable: Yes other Exam Narrative: GENERAL: NAD, cooperative HEENT: Normocephalic, atraumatic, anicteric, nares clear, oropharynx moist and clear, edentulous NECK:Supple RESP: Non labored respirations Abdomen: non-distended EXTREMITIES: Warm and well perfused, no clubbing, cyanosis, or edema. SKIN: warm, dry and intact. NEURO: CN 2-12 grossly intact. Objective Data Vital Signs Vital Signs: Vital Signs - 24 hr 02/15/22 10:00 02/15/22 12:00 02/15/22 12:00 Temperature 36.8 C Pulse Rate 90 88 89 Respiratory Rate 16 Blood Pressure 134/73 Pulse Oximetry 96 Oxygen Delivery 02/15/22 12:00 02/15/22 14:00 02/15/22 16:00 Temperature Pulse Rate 87 Respiratory Rate Blood Pressure Pulse Oximetry Oxygen Delivery Room Air Room Air 02/15/22 16:00 02/15/22 16:00 02/15/22 18:00 Temperature 36.8 C Pulse Rate 88 85 85 Respiratory Rate 16 Blood Pressure 134/73 Pulse Oximetry 96 Oxygen Delivery 02/15/22 20:00 02/16/22 00:10 02/15/22 20:00 Temperature 36.6 C 36.8 C Pulse Rate 95 103 H Respiratory Rate 16 20 Blood Pressure 125/77 117/93 H Pulse Oximetry 94 97 Oxygen Delivery Room Air 02/16/22 00:00 02/16/22 03:24
--- NOTE | 2022-02-16 11:38 | PM.PNCARD ---
Progress Note: A&P Assessment and Plan (1) Elevated troponin: Code(s): R77.8 - Other specified abnormalities of plasma proteins Status: Acute Assessment and Plan: Patient admitted after a mechanical fall, down for 24 hours, struggled to get up. Has an elevated troponin but flat curve. Several risk factors for CAD but no history of heart problems Denies any chest discomfort EKGs do not show any significant changes Will check an echo Doubt ACS; probably a nonspecific spill 2nd to physiologic stress Already takes a statin as well as a beta-nury and an ARB. Transfer off IMU? (2) Fall: Code(s): W19.XXXA - Unspecified fall, initial encounter Status: Acute Assessment and Plan: One recent fall, could not get up Patient told EMS she has been having trouble functioning and has had progressive weakness in the last month or so. CPK 875 on admission Rec'd IV fluids for dehydration May benefit fr Ph Tx. (3) Hypertension: Code(s): I10 - Essential (primary) hypertension Status: Acute Assessment and Plan: Blood pressure seems reasonably well controlled. (4) CKD (chronic kidney disease): Code(s): N18.9 - Chronic kidney disease, unspecified Status: Acute Assessment and Plan: CKD, was stage III in 2020, stage IV on this admission Subjective Date/time seen: Admitted after a fall and being down at home for 24 hours. Cardiology Follow-up for elevated troponins (0.103--> 0.113--> 0.095.); no chest pain or ischemic EKG changes, doubt ACS. History of hypertension, CKD, and progressive weakness. 02/16/22 11:38 patient feels better, slept well, but still feels weak. No shortness of breath or chest pain. Remains on room air, vitals are stable; blood pressure mildly elevated. Telemetry: NSR. Review of Systems Review of Systems: Thirsty. No shortness of breath or chest pain, no back pain or abdominal pain. Still feels weak. Exam Const: General: cooperative, healthy appearing and comfortable; No confusion Orientation/consciousness: oriented to person, patient oriented x3 and No confusion Resp: Effort & Inspection: normal respiratory effort Auscultation: clear to auscultation bilaterally Cardio: Rate: regular rate Rhythm: regular rhythm GI: Inspection: normal to inspection GI Palp: No abdominal tenderness Skin: General skin exam: normal color and no rashes or lesions noted Neuro: General: oriented to person, patient oriented x3 and No confusion Other: A little bit of an imprecise historian Extrem: Right lower extremity: no edema Left lower extremity: no edema Psych: Appearance: grossly normal Mental Status: mental status grossly normal Objective Data Vital Signs Vital Signs: Vital Signs - 24 hr 02/15/22 12:00 02/15/22 12:00 02/15/22 12:00 Temperature 98.2 F Pulse Rate 88 89 Respiratory Rate 16 Blood Pressure 134/73 Pulse Oximetry 96 Oxygen Delivery Room Air 02/15/22 14:00 02/15/22 16:00 02/15/22 16:00 Temperature 98.2 F Pulse Rate 87 88 Respiratory Rate 16 Blood Pressure 134/73 Pulse Oximetry 96 Oxygen Delivery Room Air 02/15/22 16:00 02/15/22 18:00 02/15/22 20:00 Temperature 97.8 F Pulse Rate 85 85 95 Respiratory Rate 16 Blood Pressure 125/77 Pulse Oximetry 94 Oxygen Delivery 02/16/22 00:10 02/15/22 20:00 02/16/22 00:00 Temperature 98.3 F Pulse Rate 103 H Respiratory Rate 20 Blood Pressure 117/93 H Pulse Oximetry 97 Oxygen Delivery Room Air Room Air 02/16/22 03:24 02/16/22 03:27 02/16/22 04:00 Temperature 98.1 F 98.1 F Pulse Rate 79 79 Respiratory Rate 16 16 Blood Pressure 152/81 H 152/81 H Pulse Oximetry 93 93 Oxygen Delivery Room Air 02/15/22 20:00 02/15/22 22:00 02/16/22 00:00 Temperature Pulse Rate 87 90 92 Respiratory Rate Blood Pressure Pulse Oximetry Oxygen Delivery 02/16/22 02:00
[2022-02-16 15:17] LABS: Creatine Kinase 385 U/L (30-135)
--- NOTE | 2022-02-16 17:58 | PC.NURSE ---
This patient, Kayla Márquez, was transferred to [facility] on 02/16/22 at 1758. Personal belongings sent with patient. Report given to MARGO Valle. Appropriate documentation sent with patient.
[2022-02-16] MEDS: OLANZapine 5 MG TABLET 10 MG PO (20:39)
[2022-02-16] MEDS: DIVALPROEX SODIUM ER 500 MG TAB.24H 1000 MG PO (20:39)
--- NOTE | 2022-02-17 | ECHO_ITS ---
Patient Info Name: Kayla Márquez Age: 76 years : 1945 Gender: Female Ht: 61 in Wt: 146 lbs BSA: 1.71 m2 HR: 86 bpm BP: 153 / 91 mmHg Heart Rhythm: Sinus Rhythm Technical Quality: Fair Exam Date: 02/17/2022 5:10 PM Exam Location: [facility] Card Pulmonary Patient Status: Inpatient Admit Date: 02/15/2022 Staff Ordering Physician: Summer Romero MD [facility] Clerk: Susy East RDCS Attending Provider: Lorenzo Navarro MD Referring Physician: Heather MCKEON; Exam Type: CA echo doppler color flow Study Info Indications - elevated trop Complete two-dimensional, color flow and Doppler transthoracic echocardiogram is performed. Summary 1. Complete two-dimensional, color flow and Doppler transthoracic echocardiogram is performed. 2. Left ventricular chamber dimension is normal. 3. Left ventricular systolic function is normal, estimated at 65-70%. 4. There is mild asymmetric septal increased left ventricular wall thickness. 5. The left ventricular diastolic function is grade I diastolic dysfunction. 6. Left atrial chamber dimension is mildly enlarged. 7. There is mild aortic valve regurgitation. 8. There is mild mitral valve regurgitation. 9. There is moderate aortic valve sclerosis. Left Ventricle Left ventricular chamber dimension is normal. Left ventricular systolic function is normal, estimated at 65-70%. There is mild asymmetric septal increased left ventricular wall thickness. The left ventricular diastolic function is grade I diastolic dysfunction. Right Ventricle Right ventricular chamber dimension is normal. Right ventricular systolic function is normal. Left Atria Left atrial chamber dimension is mildly enlarged. Right Atria Right atrial chamber dimension is normal. Atrial Septum Intact interatrial septum visualized by color flow imaging. Aortic Valve The aortic valve is trileaflet. There is moderate aortic valve sclerosis. There is no aortic valve stenosis. There is mild aortic valve regurgitation. Pulmonic Valve The pulmonic valve is normal. There is no pulmonic valve stenosis. There is trace pulmonic regurgitation. Mitral Valve The mitral valve has calcified annulus. There is no mitral valve stenosis. There is mild mitral valve regurgitation. Tricuspid Valve The tricuspid valve leaflets are normal. There is no significant tricuspid valve stenosis. There is trace tricuspid valve regurgitation. No pulmonary hypertension, estimated pulmonary arterial systolic pressure is 20 mmHg. Pericardium/Pleural The pericardium appears normal. There is no pericardial effusion. Inferior Vena Cava Normal inferior vena cava with >50% collapse upon inspiration consistent with normal right atrial pressure, 10 mmHg. Aorta The aortic root size at the sinus of Valsalva is normal. Left Ventricular Outflow Tract Name Value Normal LVOT 2D LVOT Diameter 2.0 cm LVOT Doppler LVOT Peak Gradient 3 mmHg LVOT Mean Gradient 2 mmHg LVOT VTI 18 cm LVOT VTI/A
[2022-02-17] MEDS: MELATONIN 5 MG TABLET PO ×2 (00:08→20:40)
[2022-02-17] MEDS: LEVOTHYROXINE SODIUM 50 MCG TABLET PO (05:29)
[2022-02-17 05:41] VITALS: BP 153/91; PULSE 86; RESP 18; TEMP 36.3; O2SAT 94
[2022-02-17 06:18] LABS: Anion Gap 7 mmol/L (8-16); Blood Urea Nitrogen 25 mg/dL (7-17); Calcium 9.2 mg/dL (8.4-10.2); Carbon Dioxide 27 mmol/L (22-30); Chloride 107 mmol/L (98-107); Estimated CRCL calculation 23 ml/min; Estimated Glomerular Filt Rate 29; Glucose 92 mg/dL (65-110); Potassium 3.3 mmol/L (3.4-5.0); Sodium 141 mmol/L (137-145)
[2022-02-17] MEDS: POTASSIUM CHLORIDE 20 MEQ TABLET 40 MEQ PO (09:38)
[2022-02-17 09:42] VITALS: PULSE 98
[2022-02-17] MEDS: METOPROLOL SUCCINATE EXT REL 50 MG TABCR PO (09:42)
[2022-02-17] MEDS: SIMVASTATIN 20 MG TABLET PO (09:42)
[2022-02-17] MEDS: calcitrioL 0.25 MCG CAPSULE PO (09:42)
[2022-02-17] MEDS: HEPARIN SODIUM 5,000 UNITS/ML VIAL 5000 UNITS SUB-Q ×2 (09:44→20:40)
[2022-02-17] MEDS: LOSARTAN POTASSIUM 25 MG TABLET PO (09:44)
[2022-02-17 09:45] VITALS: O2SAT 93
[2022-02-17] MEDS: PANTOPRAZOLE 40 MG TABLET PO (09:45)
--- NOTE | 2022-02-17 10:18 | PM.PNCARD ---
Progress Note: A&P Assessment and Plan (1) Elevated CK: Code(s): R74.8 - Abnormal levels of other serum enzymes Status: Acute (2) Hypothyroid: Code(s): E03.9 - Hypothyroidism, unspecified Status: Acute (3) History of seizures: Code(s): Z87.898 - Personal history of other specified conditions Status: Acute (4) CKD (chronic kidney disease): Code(s): N18.9 - Chronic kidney disease, unspecified Status: Acute (5) Hypertension: Code(s): I10 - Essential (primary) hypertension Status: Acute (6) Elevated troponin: Code(s): R77.8 - Other specified abnormalities of plasma proteins Status: Acute Plan Clinical picture not consistent with ACS. Echo ordered - will follow up on results Check lipid panel, continue statin. Subjective Date/time seen: 02/17/22 10:18 Interval history: Patient sitting up in chair at bedside eating breakfast. No cardiac symptoms. Denies cardiac symptoms prior to fall. Review of Systems Review of Systems: All systems reviewed & are unremarkable except as noted in HPI and below (subjective) Exam Const: General: comfortable and no acute distress Neck: Neck: no JVD Resp: Effort & Inspection: normal respiratory effort Auscultation: clear to auscultation bilaterally Cardio: Rate: regular rate Rhythm: regular rhythm Heart sounds: no murmurs Skin: General skin exam: normal color Neuro: Speech: normal speech Extrem: General: no edema Psych: Mental Status: mental status grossly normal Objective Data Vital Signs Vital Signs: Vital Signs - 24 hr 02/16/22 11:30 02/16/22 12:00 02/16/22 12:00 Temperature 36.7 C Pulse Rate 68 98 Respiratory Rate 16 Blood Pressure 154/72 H Pulse Oximetry 93 Oxygen Delivery Room Air 02/16/22 14:00 02/16/22 14:40 02/16/22 16:00 Temperature Pulse Rate 86 91 Respiratory Rate Blood Pressure Pulse Oximetry Oxygen Delivery Room Air 02/16/22 16:00 02/16/22 16:00 02/16/22 18:15 Temperature 36.9 C 36.6 C Pulse Rate 88 84 Respiratory Rate 20 20 Blood Pressure 131/81 146/69 H Pulse Oximetry 95 96 Oxygen Delivery Room Air 02/16/22 20:39 02/16/22 21:50 02/17/22 05:41 Temperature 37.1 C 36.3 C L Pulse Rate 100 86 Respiratory Rate 18 18 Blood Pressure 147/93 H 153/91 H Pulse Oximetry 98 94 Oxygen Delivery 02/17/22 09:42 Temperature Pulse Rate 98 Respiratory Rate Blood Pressure Pulse Oximetry Oxygen Delivery Intake/Output Intake/Output: Intake & Output 02/14/22 02/15/22 02/16/22 02/17/22 23:59 23:59 23:59 23:59 Intake Total 2120 1590 830 Output Total 500 800 Balance 1620 790 830 Meds/Results Medications: Active Medications Generic Name Dose Route Start Last Admin Trade Name Freq PRN Reason Stop Dose Admin Acetaminophen 650 mg 02/15/22 23:36 02/16/22 08:26 Acetaminophen 325 Mg Tablet PO 650 mg Q6H PRN Administration Mild Pain (1-3) or Fever Calcitriol 0.25 mcg 02/15/22 09:00 02/17/22 09:42 Calcitriol 0.25 Mcg Capsule PO 0.25 mcg DAILY ROLF Administration Divalproex Sodium 1,000 mg 02/15/22 21:00 02/16/22 20:39 Divalproex Sodium Er 500 Mg Tab.24h PO 1,000 mg HS ROLF Administration Ergocalciferol 50,000 unit 02/18/22 09:00 Ergocalciferol 50,000 Unit Capsule PO WEEKLY ROLF Heparin Sodium (Porcine) 5,000 units 02/15/22 21:00 02/17/22 09:44 Heparin Sodium 5,000 Units/Ml Vial SUB-Q 5,000 units Q12HR ROLF Administration Hydroxyzine HCl 25 mg 02/15/22 07:45 02/15/22 23:32 Hydroxyzine Hcl 25 Mg Tablet PO 25 mg TID PRN Administration Anxiety Levothyroxine Sodium 50 mcg 02/15/22 09:00 02/17/22 05:29 Levothyroxine Sodium 50 Mcg Tablet PO 50 mcg DAILY@0630 ROLF Administration Losartan Potassium 25 mg 02/17/22 09:00 02/17/22 09:44 Losartan Potassium 25 Mg Tablet PO 25 mg DAILY ROLF Administration Melato
[2022-02-17 11:00] LABS: Cholesterol 129 mg/dL (0-200); HDL Direct 47 mg/dL; Triglycerides 90 mg/dL (<150)
[2022-02-17 11:10] LABS: LDL Cholesterol Direct 57 mg/dL
[2022-02-17 13:22] VITALS: BMI 27.8
[2022-02-17 16:00] VITALS: BP 143/71; PULSE 90; RESP 16; TEMP 36.3; O2SAT 96
--- NOTE | 2022-02-17 16:21 | WPDCDIQUERY2 ---
CDI Query Clarification Request 02/15 ER physician documented: MDM Narrative Medical decision making narrative: 76-year-old female presents here after fall, then was too weak to get up.? Vital signs stable here, on exam she does have a contusion to her forehead, and bruising to her lower legs, she has some mild tenderness to her abdomen.? I suspect possible infection including pneumonia or UTI, rhabdo, vs possible intraabdominal or cardiac etiology or intracranial abnormality. ?02/15 H&P documentation: Elevated CK: ?Code(s): R74.8 - Abnormal levels of other serum enzymes ?Status:?Acute ?Assessment and Plan: CK elevated. Will give fluids to protect kidneys.? -NS at 100 cc/hr with time out/stop time -Trend CK? Lab results show: CK Total Creatine Kinase, 875 Please clarify if diagnosis: Rhabdomyolysis has been ruled in or ruled out. If diagnosis, Rhabdomyolysis ruled in, is diagnosis for: -Traumatic -Non-traumatic <Jacquie Damon - Last Filed: 02/17/22 16:34> Provider Comments Yes it is rhabdo and it is traumatic <Sheila Rader MD - Last Filed: 02/18/22 08:00>
--- NOTE | 2022-02-17 17:41 | PM.IMPN ---
Progress Note: A&P Assessment and Plan (1) Fall: Code(s): W19.XXXA - Unspecified fall, initial encounter Status: Acute Assessment and Plan: Seems to have been a mechanical ground level fall as patient has not had a recent seizure. -PT/OT (2) Elevated troponin: Code(s): R77.8 - Other specified abnormalities of plasma proteins Status: Acute Assessment and Plan: Appreciates Cardiology Recommendations. Will continue statin, bb and ARB. Awaiting echo results. (3) Hypertension: Code(s): I10 - Essential (primary) hypertension Status: Acute Assessment and Plan: Continue home metoprolol and losartan. Will monitor. (4) CKD (chronic kidney disease): Code(s): N18.9 - Chronic kidney disease, unspecified Status: Acute Assessment and Plan: Patient reports stage 4 and that she follows with a [facility]. Based on GFR patient is at baseline. Will monitor. -Avoid nephrotoxic agents -Renally dose medications (5) Elevated CK: Code(s): R74.8 - Abnormal levels of other serum enzymes Status: Acute Assessment and Plan: CK downtrending. (6) Left ankle pain: Code(s): M25.572 - Pain in left ankle and joints of left foot Status: Acute Assessment and Plan: XR left ankle with no fracture. Continue PT/OT. (7) Hypothyroid: Code(s): E03.9 - Hypothyroidism, unspecified Status: Acute Assessment and Plan: Euthyroid. Continue home medication for now. (8) History of seizures: Code(s): Z87.898 - Personal history of other specified conditions Status: Acute Assessment and Plan: Continue divalproex. Plan Full Code Son Last is contact Heparin prophylaxis Subjective Date/time seen: 02/17/22 17:41 Patient is more cooperative today. She says she feels better. She says she was diagnosed with her seizure disorder here at [facility]. She says she was told she had petit mal seizures. Reports having incontinence with seizures and shakes. She says she knows when she has a seizure and she has not had one recently. Review of Systems Neurologic: Denies confusion Exam Narrative: GENERAL: NAD, cooperative HEENT: Normocephalic, atraumatic, anicteric, nares clear, oropharynx moist and clear, edentulous NECK:Supple RESP: Non labored respirations Abdomen: non-distended EXTREMITIES: Warm and well perfused, no clubbing, cyanosis, or edema. SKIN: warm, dry and intact. NEURO: CN 2-12 grossly intact. Objective Data Vital Signs Vital Signs: Vital Signs - 24 hr 02/16/22 18:15 02/16/22 20:39 02/16/22 21:50 Temperature 36.6 C 37.1 C Pulse Rate 84 100 Respiratory Rate 20 18 Blood Pressure 146/69 H 147/93 H Pulse Oximetry 96 98 Oxygen Delivery 02/17/22 05:41 02/17/22 09:42 02/17/22 16:00 Temperature 36.3 C L 36.3 C L Pulse Rate 86 98 90 Respiratory Rate 18 16 Blood Pressure 153/91 H 143/71 H Pulse Oximetry 94 96 Oxygen Delivery 02/17/22 09:45 Temperature Pulse Rate Respiratory Rate Blood Pressure Pulse Oximetry 93 Oxygen Delivery Room Air Intake/Output Intake/Output: Intake & Output 02/14/22 02/15/22 02/16/22 02/17/22 23:59 23:59 23:59 23:59 Intake Total 2120 1590 1070 Output Total 500 800 Balance 7753 819 8434 Meds/Results Medications: Active Medications Generic Name Dose Route Start Last Admin Trade Name Josefq PRN Reason Stop Dose Admin Acetaminophen 650 mg 02/15/22 23:36 02/16/22 08:26 Acetaminophen 325 Mg Tablet PO 650 mg Q6H PRN Administration Mild Pain (1-3) or Fever Calcitriol 0.25 mcg 02/15/22 09:00 02/17/22 09:42 Calcitriol 0.25 Mcg Capsule PO 0.25 mcg DAILY ROLF Administration Divalproex Sodium 1,000 mg 02/15/22 21:00 02/16/22 20:39 Divalproex Sodium Er 500 Mg Tab.24h PO 1,000 mg HS ROLF Administration Ergocalciferol 50,
[2022-02-17 18:17] LABS: Creatine Kinase 201 U/L (30-135)
[2022-02-17] MEDS: hydrOXYzine HCL 25 MG TABLET PO (19:29)
[2022-02-17 20:33] VITALS: BP 155/93; PULSE 88; RESP 18; TEMP 36.6; O2SAT 98
[2022-02-17] MEDS: DIVALPROEX SODIUM ER 500 MG TAB.24H 1000 MG PO (20:40)
[2022-02-17] MEDS: OLANZapine 5 MG TABLET 10 MG PO (20:40)
[2022-02-18] MEDS: hydrOXYzine HCL 25 MG TABLET PO ×2 (04:07→14:26)
[2022-02-18] MEDS: ACETAMINOPHEN 325 MG TABLET 650 MG PO ×3 (04:07→20:26)
[2022-02-18 04:56] VITALS: BP 153/87; PULSE 86; RESP 16; TEMP 36.4; O2SAT 97
[2022-02-18] MEDS: LEVOTHYROXINE SODIUM 50 MCG TABLET PO (05:52)
[2022-02-18 05:54] LABS: Anion Gap 12 mmol/L (8-16); Blood Urea Nitrogen 27 mg/dL (7-17); Calcium 9.7 mg/dL (8.4-10.2); Carbon Dioxide 27 mmol/L (22-30); Chloride 103 mmol/L (98-107); Estimated CRCL calculation 22 ml/min; Estimated Glomerular Filt Rate 28; Glucose 98 mg/dL (65-110); Potassium 3.9 mmol/L (3.4-5.0); Sodium 142 mmol/L (137-145)
[2022-02-18] MEDS: ERGOCALCIFEROL 50,000 UNIT CAPSULE 50000 UNITS PO (09:21)
[2022-02-18] MEDS: SIMVASTATIN 20 MG TABLET PO (09:21)
[2022-02-18] MEDS: PANTOPRAZOLE 40 MG TABLET PO (09:21)
[2022-02-18] MEDS: calcitrioL 0.25 MCG CAPSULE PO (09:21)
[2022-02-18] MEDS: LOSARTAN POTASSIUM 25 MG TABLET PO (09:21)
[2022-02-18] MEDS: HEPARIN SODIUM 5,000 UNITS/ML VIAL 5000 UNITS SUB-Q ×2 (09:27→20:28)
[2022-02-18 09:29] VITALS: PULSE 84
[2022-02-18] MEDS: METOPROLOL SUCCINATE EXT REL 50 MG TABCR PO (09:29)
--- NOTE | 2022-02-18 10:00 | PM.IMPN ---
Progress Note: A&P Assessment and Plan (1) Fall: Code(s): W19.XXXA - Unspecified fall, initial encounter Status: Acute Assessment and Plan: Seems to have been a mechanical ground level fall as patient has not had a recent seizure. -OT says patient is appropriate for discharge to home -PT is recommending additional therapy (2) Elevated troponin: Code(s): R77.8 - Other specified abnormalities of plasma proteins Status: Acute Assessment and Plan: Appreciates Cardiology Recommendations. Will continue statin, bb and ARB. As of this morning, still awaiting echo result. Patient can be discharged to home when echo read is finalized. (3) Hypertension: Code(s): I10 - Essential (primary) hypertension Status: Acute Assessment and Plan: Continue home metoprolol and losartan. Will monitor. (4) CKD (chronic kidney disease): Code(s): N18.9 - Chronic kidney disease, unspecified Status: Acute Assessment and Plan: Patient reports stage 4 and that she follows with a Diesel Trailer Mechanic. Based on GFR patient is at baseline. Will monitor. -Avoid nephrotoxic agents -Renally dose medications (5) Elevated CK: Code(s): R74.8 - Abnormal levels of other serum enzymes Status: Acute Assessment and Plan: CK downtrending. (6) Left ankle pain: Code(s): M25.572 - Pain in left ankle and joints of left foot Status: Acute Assessment and Plan: XR left ankle with no fracture. Continue PT/OT. (7) Hypothyroid: Code(s): E03.9 - Hypothyroidism, unspecified Status: Acute Assessment and Plan: Euthyroid. Continue home medication for now. (8) History of seizures: Code(s): Z87.898 - Personal history of other specified conditions Status: Acute Assessment and Plan: Continue divalproex. Plan Full Code Son Last is contact Heparin prophylaxis Subjective Date/time seen: 02/18/22 10:00 Patient says her breakfast looks delicious this morning but people keep interrupting her while she is trying to eat it. Patient denies having any pain and says she feels great. Review of Systems Neurologic: Denies confusion Exam Narrative: GENERAL: NAD, cooperative HEENT: Normocephalic, atraumatic, anicteric, nares clear, oropharynx moist and clear, edentulous NECK:Supple RESP: Non labored respirations Abdomen: non-distended EXTREMITIES: Warm and well perfused, no clubbing, cyanosis, or edema. SKIN: warm, dry and intact. NEURO: CN 2-12 grossly intact. Objective Data Vital Signs Vital Signs: Vital Signs - 24 hr 02/17/22 20:33 02/18/22 04:56 02/18/22 09:29 Temperature 36.6 C 36.4 C L Pulse Rate 88 86 84 Respiratory Rate 18 16 Blood Pressure 155/93 H 153/87 H Pulse Oximetry 98 97 02/18/22 14:12 Temperature 36.3 C L Pulse Rate 97 Respiratory Rate 18 Blood Pressure 130/68 Pulse Oximetry 99 Intake/Output Intake/Output: Intake & Output 02/15/22 02/16/22 02/17/22 02/18/22 23:59 23:59 23:59 23:59 Intake Total 2120 1590 2310 1280 Output Total 500 800 800 Balance 1818 047 0689 1280 Meds/Results Medications: Active Medications Generic Name Dose Route Start Last Admin Trade Name Freq PRN Reason Stop Dose Admin Acetaminophen 650 mg 02/15/22 23:36 02/18/22 14:28 Acetaminophen 325 Mg Tablet PO 650 mg Q6H PRN Administration Mild Pain (1-3) or Fever Calcitriol 0.25 mcg 02/15/22 09:00 02/18/22 09:21 Calcitriol 0.25 Mcg Capsule PO 0.25 mcg DAILY ROLF Administration Divalproex Sodium 1,000 mg 02/15/22 21:00 02/17/22 20:40 Divalproex Sodium Er 500 Mg Tab.24h PO 1,000 mg HS ROLF Administration Ergocalciferol 50,000 unit 02/18/22 09:00 02/18/22 09:21 Ergocalciferol 50,000 Unit Capsule PO 50,000 unit WEEKLY ROLF Administration Heparin Sodium (Porcine) 5,000 units 02/15/22 21:00 02/18/22 09:27
[2022-02-18 14:12] VITALS: BP 130/68; PULSE 97; RESP 18; TEMP 36.3; O2SAT 99
[2022-02-18 18:14] LABS: Creatine Kinase 104 U/L (30-135)
[2022-02-18] MEDS: MELATONIN 5 MG TABLET PO (20:26)
[2022-02-18] MEDS: DIVALPROEX SODIUM ER 500 MG TAB.24H 1000 MG PO (20:26)
[2022-02-18] MEDS: OLANZapine 5 MG TABLET 10 MG PO (20:26)
[2022-02-19] VITALS: BP 115/70; PULSE 80; RESP 18; TEMP 36.9; O2SAT 97
[2022-02-19 05:24] LABS: Anion Gap 10 mmol/L (8-16); Blood Urea Nitrogen 34 mg/dL (7-17); Calcium 9.9 mg/dL (8.4-10.2); Carbon Dioxide 29 mmol/L (22-30); Chloride 101 mmol/L (98-107); Estimated CRCL calculation 20 ml/min; Estimated Glomerular Filt Rate 24; Glucose 99 mg/dL (65-110); Potassium 4.1 mmol/L (3.4-5.0); Sodium 140 mmol/L (137-145)
[2022-02-19] MEDS: LEVOTHYROXINE SODIUM 50 MCG TABLET PO (05:48)
[2022-02-19] MEDS: HEPARIN SODIUM 5,000 UNITS/ML VIAL 5000 UNITS SUB-Q (08:34)
[2022-02-19] MEDS: calcitrioL 0.25 MCG CAPSULE PO (08:34)
[2022-02-19 08:35] VITALS: PULSE 92
[2022-02-19] MEDS: METOPROLOL SUCCINATE EXT REL 50 MG TABCR PO (08:35)
[2022-02-19] MEDS: SIMVASTATIN 20 MG TABLET PO (08:35)
[2022-02-19] MEDS: LOSARTAN POTASSIUM 25 MG TABLET PO (08:35)
[2022-02-19] MEDS: PANTOPRAZOLE 40 MG TABLET PO (08:35)
[2022-02-19] MEDS: ACETAMINOPHEN 325 MG TABLET 650 MG PO ×2 (08:35→15:07)
[2022-02-19 08:58] VITALS: O2SAT 97
--- NOTE | 2022-02-19 10:57 | PC.NURSE ---
Manager Flight reviewed student nurse, Guzman Leiva, documentation and charting
[2022-02-19] MEDS: hydrOXYzine HCL 25 MG TABLET PO (12:18)
--- NOTE | 2022-02-19 14:46 | PM.DS ---
DS: Admitting Diagnosis Discharge Date February 19, 2022 Admitting Diagnosis Status post fall DS: Discharge Diagnosis Discharge Diagnosis (1) Fall: Code(s): W19.XXXA - Unspecified fall, initial encounter Status: Acute Assessment and Plan: Seems to have been a mechanical ground level fall as patient has not had a recent seizure. -OT says patient is appropriate for discharge to home -PT is recommending additional therapy (2) Elevated troponin: Code(s): R77.8 - Other specified abnormalities of plasma proteins Status: Acute Assessment and Plan: Appreciates Cardiology Recommendations. Will continue statin, bb and ARB. As of this morning, still awaiting echo result. Patient can be discharged to home when echo read is finalized. (3) Hypertension: Code(s): I10 - Essential (primary) hypertension Status: Acute Assessment and Plan: Continue home metoprolol and losartan. Will monitor. (4) CKD (chronic kidney disease): Code(s): N18.9 - Chronic kidney disease, unspecified Status: Acute Assessment and Plan: Patient reports stage 4 and that she follows with a Field Tech. Based on GFR patient is at baseline. Will monitor. -Avoid nephrotoxic agents -Renally dose medications (5) Elevated CK: Code(s): R74.8 - Abnormal levels of other serum enzymes Status: Acute Assessment and Plan: CK downtrending. (6) Left ankle pain: Code(s): M25.572 - Pain in left ankle and joints of left foot Status: Acute Assessment and Plan: XR left ankle with no fracture. Continue PT/OT. (7) Hypothyroid: Code(s): E03.9 - Hypothyroidism, unspecified Status: Acute Assessment and Plan: Euthyroid. Continue home medication for now. (8) History of seizures: Code(s): Z87.898 - Personal history of other specified conditions Status: Acute Assessment and Plan: Continue divalproex. Plan Full Code Son Last is contact Heparin prophylaxis DS: Summary Hospital Course Hospital Course: 76F with a past medical history of hypothyroidism, hypertension, seizure disorder, alcoholism in remission, chronic kidney disease stage IV, hypertension and hyperlipidemia who presents to the emergency department after a fall.? Patient says she was going from the kitchen to the living room when she twisted her ankle and fell.? She had been feeling week for 2-3 days prior to the fall and says she was took weak to get up off the floor.? She crawled and knocked her phone off the table and called 911.? She denies fever, chills but says she had been having weakness and burning with urination for a few days. Reports she has not been eating and drinking well the last few days either.? She also says she felt confused and disoriented before falling.? Denies palpitations, lightheadedness, chest pain.? She does get ankle edema at times.? Denies cough, sore throat, rhinorrhea, nausea, vomiting, diarrhea.? Has constipation. Denies easy bruising bleeding but she reports she does have bruising from a prior fall on her chest.? Denies myalgias. Denies LOC and says she remembers falling.? Lives at home alone after having been in an half-way for 10 months. In the ED, CT A/P pending.? CK 875.? Troponin 0.103->0.113->0.095.? Leukocytosis 15. ? CT head no intracranial abnormality.? CT cervical spine no fracture.? Given 1L LR and ASA 324 mg. ? Cardiology was consulted for elevated troponins. They ordered an echo and recommended gentle IV fluids. Patient was noted to have low levels of her seizure medication and this was thought possibly to contribute to her fall. Echo was essentially benign and Cardiology signed off. Time Spent with Patient Time attestation: Total time spent providing and/or coordinating discharge services: Exam Narrative: GENERAL: NAD, cooperative HEENT: Normocephalic, atraumatic, anic
[2022-02-19] MEDS: FLUTICASONE PROPIONATE 0.05% NA SPR 16 GM BTL (*BKC) 2 SPRAY NASAL (15:30)
[2022-02-19] MEDS: LIDOCAINE 5% PATCH 1 PATCH TRANSDERM (15:30)
[2022-02-19] MEDS: guaiFENesin 600 MG/DEXTROMETHORPHAN 30 MG SR TAB 12 HR 1 TAB PO (15:30)
[2022-02-19] MEDS: LORATADINE 10 MG TABLET PO (15:31)
[2022-02-19 16:00] VITALS: BP 132/73; PULSE 98; RESP 18; TEMP 36.3; O2SAT 96
== END 2022-02-19 17:45 | disposition home health service (06) | DRG 948 ==
LOC: ANHED 04:41 → ANHIMU 06:32 → ANH3MED 02-16 18:01
PROVIDERS: Family Medicine; Internal Medicine; Admitting Provider Internal Medicine; Emergency Provider Emergency Medicine; PCP Family Medicine; Visit Provider Student in an Organized Health Care Education/Training Program
DX: R53.1 Weakness (principal); N18.4 Chronic kidney disease, stage 4 (severe); T42.6X5A Adverse effect of other antiepileptic and sedative-hypnotic drugs, initial encounter; W18.39XA Other fall on same level, initial encounter; R77.8 Other specified abnormalities of plasma proteins; T79.6XXA Traumatic ischemia of muscle, initial encounter; Z20.822 Contact with and (suspected) exposure to COVID-19; G40.909 Epilepsy, unspecified, not intractable, without status epilepticus; I12.9 Hypertensive chronic kidney disease with stage 1 through stage 4 chronic kidney disease, or unspecified chronic kidney disease; F10.21 Alcohol dependence, in remission; E03.9 Hypothyroidism, unspecified; E78.5 Hyperlipidemia, unspecified; J44.9 Chronic obstructive pulmonary disease, unspecified; K21.9 Gastro-esophageal reflux disease without esophagitis; F31.9 Bipolar disorder, unspecified; F17.210 Nicotine dependence, cigarettes, uncomplicated; M25.572 Pain in left ankle and joints of left foot; S00.83XA Contusion of other part of head, initial encounter; S80.12XA Contusion of left lower leg, initial encounter; S80.11XA Contusion of right lower leg, initial encounter; R39.89 Other symptoms and signs involving the genitourinary system; E86.0 Dehydration
CPT/HCPCS: 36415; 70450; 71045; 72125; 73562; 73610; 74176; 76705; 80048; 80053; 80061; 80164; 81001; 82550; 84439; 84443; 84484; 85025; 87086; 87088; 90471; 90715; 93005; 93306; 97110; 97161; 97165; 97530; 97535; 99285; A9270; C9803; J1644; J7030; J7120; U0003; U0005